=== PATIENT | female | born 1945 | race Caucasian/White ===

== ENCOUNTER 2018-10-01 14:05 | Observation (INO) | payer MEDICARE ==
[~2018-10-01] VITALS: Ht 152.4 cm; Wt 68.2 kg
[2018-10-01] MEDS ORDERED: LABETALOL HCL 5 MG/ML 20ML VIAL IV ONE (14:32)
[2018-10-01] MEDS ORDERED: POTASSIUM CHLO10 ME1 PO (14:44)
[2018-10-01] MEDS ORDERED: VITAMIN D31000 UNIT (14:44)
[2018-10-01] MEDS ORDERED: METOPROLOL TART25 MG PO (14:44)
[2018-10-01] MEDS ORDERED: METFORMIN HCL1000 MG (14:44)
[2018-10-01] MEDS ORDERED: FUROSEMIDE40 MG PO (14:44)
[2018-10-01] MEDS ORDERED: ASPIRIN81 MG (14:44)
[2018-10-01] MEDS ORDERED: LISINOPRIL10 MG PO (14:44)
[2018-10-01] MEDS ORDERED: VITAMIN B-121000 MCG PO (14:44)
[2018-10-01] MEDS ORDERED: CRESTOR10 MG (14:44)
[2018-10-01] MEDS ORDERED: LABETALOL HCL 20 ML ONE (14:55)
[2018-10-01] MEDS ORDERED: DIPHENHYDRAMINE HCL INJ 50 MG/ML VIAL IV PRN (15:15)
[2018-10-01] MEDS ORDERED: LABETALOL HCL 5 MG/ML 20ML VIAL IV PRN (15:15)
[2018-10-01] MEDS ORDERED: ONDANSETRON HCL INJ 2MG/ML 2ML 2 MG/ML VIAL IV PRN (15:15)
[2018-10-01] MEDS ORDERED: ACETAMINOPHEN 325 MG TAB PO PRN (15:15)
--- NOTE | 2018-10-01 15:20 | Diagnostic Imaging Report ---
Exam: Head CT without contrast History: Numbness in both arms Comparison studies: None Technique: Axial images were obtained from the skull base to the vertex. Coronal and sagittal images reconstructed from the axial data. Dose modulation, iterative reconstruction, and/or weight based adjustment of the mA/kV was utilized to reduce the radiation dose to as low as reasonably achievable. Radiation dose: Total DLP: 969 mGy*cm. Estimated effective dose: DLP x 0.015 Intravenous contrast: None Findings: Scalp: No abnormalities. Bones: No fractures, blastic or lytic lesions. Brain sulci: Mildly prominent. Ventricles: Normal in size and configuration. No hydrocephalus. Extra-axial spaces: No masses, no fluid collection. Parenchyma: No mass, acute hemorrhage or acute or chronic cortical insults. Scattered hypodensities throughout the supratentorial white matter are nonspecific but most compatible with chronic microvascular ischemic changes. Sellar/suprasellar region: No abnormalities. Craniocervical junction: Patent foramen magnum. No Chiari one malformation. Middle ear mastoid cavities: Clear. Included paranasal sinuses: Left maxillary sinus fluid level. Remaining included sinuses are clear. Incidental findings: Lens replacements for previous cataract surgery. Atherosclerotic calcifications in the carotid siphons and intradural vertebral arteries. IMPRESSION: 1. No acute intracranial abnormalities. 2. Mild age-related generalized volume loss. 3. Mild chronic microvascular ischemic changes. 4. Left maxillary sinus fluid can be correlated for acute sinusitis. Signed by: Dr. Petey Villalta M.D. on 10/01/2018 3:17 PM
--- NOTE | 2018-10-01 15:21 | NUR ---
L arm BP 190/94 R arm BP 219/90
--- OUTSIDE RECORDS SUMMARY | 2018-10-01 15:38 | XMS REPORT ---
Author Author [facility] Address Unknown Phone Unavailable Care Team Providers Care Carcass Washer Name Role Phone Edvin NORTH Unavailable Unavailable Problems This patient has no known problems. Allergies, Adverse Reactions, Alerts This patient has no known allergies or adverse reactions. Medications This patient has no known medications. Results Test Description Test Time Test Comments Text Results Atomic Results Result Comments CT BRAIN WO-HOPD 2018-10-01 15:14:00 [place] [address] Patient Name: WILL TURNER MR #: [id number] : 1945 Age/Sex: 73/F Req #: [id number] Adm Physician: Ordered by: JHONATHAN NORTH MD Report #: [id number] Location: [facility] Room/Bed: Procedure: [id number] HOPD/CT BRAIN WO-HOPD Exam Date: 10/01/18 Exam Time: 1508 REPORT STATUS: Signed Exam: Head CT without contrast History: Numbness in both arms Comparison studies: None Technique: Axial images were obtained from the skull base to the vertex. Coronal and sagittal images reconstructed from the axial data. Dose modulation, iterative reconstruction, and/or weight based adjustment of the mA/kV was utilized to reduce the radiation dose to as low as reasonably achievable. Radiation dose: Total DLP: 969 mGy*cm. Estimated effective dose: DLP x 0.015 Intravenous contrast: None Findings: Scalp: No abnormalities. Bones: No fractures, blastic or lytic lesions. Brain sulci: Mildly prominent. Ventricles: Normal in size and configuration. No hydrocephalus. Extra-axial spaces: No masses, no fluid collection. Parenchyma: No mass, acute hemorrhage or acute or chronic cortical insults. Scattered hypodensities throughout the supratentorial white matter are nonspecific but most compatible with chronic microvascular ischemic changes. Sellar/suprasellar region: No abnormalities. Craniocervical junction: Patent foramen magnum. No Chiari one malformation. Middle ear mastoid cavities: Clear. Included paranasal sinuses: Left maxillary sinus fluid level. Remaining included sinuses are clear. Incidental findings: Lens replacements for previous cataract surgery. Atherosclerotic calcifications in the carotid siphons and intradural vertebral arteries. IMPRESSION: 1. No acute intracranial abnormalities. 2. Mild age- related generalized volume loss. 3. Mild chronic microvascular ischemic changes. 4. Left maxillary sinus fluid can be correlated for acute sinusitis. Signed by: Dr. Lionel George M.D. on 10/01/2018 3:17 PM Dictated By: LIONEL GEORGE MD [id number] Transcribed By: ALEX on 10/01/18 [id number] COPY TO: JHONATHAN NORTH MD
--- NOTE | 2018-10-01 15:54 | NUR ---
Report to ANNIE Leon
--- NOTE | 2018-10-01 15:55 | NUR ---
[facility] called to transport pt to [facility] room 179
[2018-10-01] MEDS ORDERED: DEXTROSE 50% SYRINGE 50 ML IV PRN (16:00)
[2018-10-01] MEDS: INSULIN REGULAR, HUMAN 100 UNIT/1 ML 3ML VIAL SQ SCH ×2 (16:09→21:00)
[2018-10-01] MEDS ORDERED: METOPROLOL TARTRATE 50 MG TAB ONE (16:14)
[2018-10-01] MEDS ORDERED: FAMOTIDINE 20 MG/2 ML VIAL IV ONE (16:15)
[2018-10-01] MEDS ORDERED: LISINOPRIL 10 MG TAB PO SCH (16:30)
[2018-10-01] MEDS ORDERED: METOPROLOL TARTRATE 50 MG TAB PO SCH (17:00)
[2018-10-01] MEDS ORDERED: FAMOTIDINE 20 MG/2 ML VIAL IV SCH (17:00)
--- NOTE | 2018-10-01 17:20 | NUR ---
Recvd patient from [facility] by EMS. AAOx3, denies any pain or SOB , PATIENT AMBULATING IN ROOM, KEEP MONITORING, CALL LIGHT IN REACH
[2018-10-01 17:50] VITALS: BP 157/77
[2018-10-01 18:24] LABS: CREATINE KINASE MB 1.2 ng/mL (0-5.0)
[2018-10-01] MEDS ORDERED: HYDRALAZINE HCL 20 MG/ML VIAL IV PRN (19:00)
[2018-10-01 20:00] VITALS: BP 121/80
[2018-10-01] MEDS: HEPARIN SOD (PORCINE) 5,000 UNIT/ML VIAL SC SCH (21:00)
[2018-10-01] MEDS ORDERED: ZOLPIDEM TARTRATE 5 MG TAB PO PRN (21:00)
[2018-10-01] MEDS ORDERED: SIMVASTATIN 20 MG TAB PO SCH (21:00)
[2018-10-01] MEDS ORDERED: SIMVASTATIN 40 MG TAB PO SCH (21:00)
--- NOTE | 2018-10-01 22:23 | Consultation ---
DATE OF CONSULTATION: 10/01/2018 Neurology Consult Note HISTORY OF PRESENT ILLNESS: Ms. Villalobos is a 73-year-old right-hand dominant woman with past medical history significant for hypertension, hyperlipidemia, and diabetes mellitus type 2, admitted to [facility] on October 01, 2018, with symptoms suspicious for a stroke. Ms. Villalobos describes her symptoms as follows. The patient has experienced a sudden onset of numbness, beginning near the elbow, then radiating distally to the hand, then proximally to the side of the neck and lower face (V3 distribution). In each instance, the symptoms have lasted for approximately 30 minutes. The symptoms occurred once on Wednesday, September 26, 2018. The symptoms occurred once per day on Sunday, September 30, 2018, and September, In addition to the above described symptoms, Ms. Villalobos endorses dysarthria when experiencing the numbness over the right arm. The patient does not report a new or worsening visual field cut or other disturbance, weakness, poor balance, impairment of gait, dizziness, or confusion. The patient does not report a headache, chest pain, nausea, or vomiting. Ms. Villalobos presented to a [facility] on the afternoon of October 01, 2018, for further evaluation of her symptoms at the urging of multiple family members. Upon arrival in the emergency center, the patient's blood pressure was 245/120 mmHg with a pulse of 76 beats per minute. Ms. Villalobos's neurological examination was documented as being nonfocal. A CT of the brain without contrast was performed at the [facility]. There is no evidence of recent large territorial ischemia or hemorrhage. Ms. Villalobos was then transferred from the [facility] to [facility], where she was admitted under observation status for further evaluation of her symptoms. Ms. Villalobos endorses compliance with all medications prescribed. However, she does report forgetting to take her antihypertensive medications on the evening prior to admission. REVIEW OF SYSTEMS: Dysarthria, numbness alternately of the left and right arms. PAST MEDICAL HISTORY: Hypertension, hyperlipidemia, diabetes mellitus type 2, and anemia. PAST SURGICAL HISTORY: Bovine aortic valve replacement, bilateral carpal tunnel release, multiple trigger finger releases, right breast lumpectomy-DCIS. The patient receives 7 weeks of radiation as well. PAST HOSPITALIZATIONS: Surgeries/procedures as listed. FAMILY MEDICAL HISTORY: The patient's paternal and maternal grandparents are . Their medical records are unknown. The patient's father is . He had coronary artery disease as well as a myocardial infarction. The patient's mother is from uterine cancer. Multiple Ms. Villalobos's brothers had coronary artery disease with myocardial infarctions. A sister from nonalcoholic cirrhosis. SOCIAL HISTORY: The patient is . 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 Ms. Villalobos does report a prior history of tobacco use, but quit smoking cigarettes approximately 30+ years ago. The patient does endorse occasional alcohol use. She does not report current or prior recreational drug use. HOME MEDICATIONS: Aspirin 81 mg by mouth daily, vitamin D3 of 1000 units, vitamin B12 of 1000 mcg by mouth daily, furosemide 20 mg by mouth daily, lisinopril 10 mg by mouth twice daily, metformin 1000 mg, metoprolol 25 mg by mouth daily, potassium chloride 10 mEq by mouth daily, and rosuvastatin 2.5 mg by mouth at bedtime daily. HOSPITAL MEDICATIONS: Tylenol, aspirin, Benadryl, Pepcid, heparin, hydralazine, Humulin, labetalol, lisinopril, metoprolol, Zofran, simvastatin, and Ambien. ALLERGIES: ALTACE, ZETIA, ADVERSE EFFECTS OF MULTIPLE STATINS. ORANGE. THE PATIENT DOES NOT REPORT A LATEX ALLERGY. HOWEVER, SHE DOES HAVE AN ADVERSE REACTION TO NON-PAPER TAPE. NO KNOWN ALLERGIES TO IODINE OR OTHER CONTRAST MATERIALS. PHYSICAL EXAMINATION: VITAL SIGNS: Height 60 inches, weight 148 pounds, BMI 28.9 kg/m2, blood pressure 157/77 mmHg, pulse is 72 beats per minute, respiratory rate 20 breaths per minute, and oxygen saturation 96% on room air. GENERAL: The patient is awake and alert, does not appear distressed. Overweight. HEENT: Normocephalic and atraumatic. Pupils are surgical. Moist mucous membranes. NECK: Supple. No appreciable thyromegaly. No appreciable carotid bruits. CARDIOVASCULAR: S1, S2, regular rate and rhythm. No murmurs, rubs, or gallops. RESPIRATORY: Clear to auscultation bilaterally. No wheezes, rhonchi, or rales. EXTREMITIES: The skin is warm and dry. No clubbing, cyanosis, or edema. The posterior tibial and dorsalis pedis pulses are 2+ and symmetric. SKIN: No rashes or lesions. NEUROLOGIC: Memory/Attention: The patient is awake and alert, oriented to person, place, time, and situation. Cranial Nerves: Cranial nerve I - not tested. Cranial nerves II, III, IV, and - pupils are surgical. Extraocular movements intact. No nystagmus. Cranial nerve V - sensation to light touch and pinprick is intact in the bilateral V1 through V3 distributions. Strength in the temporalis and masseter muscles are within normal limits. Cranial nerve VII - the face is asymmetric on the right as are all facial movements. Very mild right central facial weakness is appreciated. Cranial nerve VIII - hearing is intact to finger rub bilaterally. Cranial nerves IX, X - the soft palate elevates equally and symmetrically. Cranial nerve XI - normal strength of the bilateral sternocleidomastoid and trapezius muscles. Cranial nerve XII - the tongue protrudes midline and moves symmetrically from [id number]-[id number]. Strength: Bulk is normal. Strength is 5/5 in the bilateral deltoids, biceps, triceps, wrist flexors and extensors, finger flexors and extensors, intrinsic hand muscles, hip flexors, knee flexors and extensors, ankle dorsiflexion and plantar flexion, and intrinsic foot muscles except as follows: The flexors in the right leg are 4/5. Tone is normal. DTRs: Deep tendon reflexes are 2+ at the left triceps, biceps, brachioradialis, and patella. Deep tendon reflexes are 3+ at the right triceps, biceps, brachioradialis, and patellas. Deep tendon reflexes are absent and symmetric at the Achilles. Plantar responses are flexor bilaterally. Sensation: Sensation is diminished to light touch and pinprick in a stocking distribution, but symmetric from [id number]. Cerebellar: Jebzeu-daxm-[id number] and heel-everett movements are intact without dysmetria or other impairment. Gait: Deferred. Speech: Spontaneous speech is normal without appreciable dysarthria or aphasia. Repetition is intact. Involuntary Movements: None. Pronator Drift: Subtle in the right arm. LABORATORY DATA: Creatine kinase 61, CK-MB 1.20, and troponin I 0.008. DIAGNOSTIC STUDIES: Electrocardiogram on 10/01/2018: Normal sinus rhythm at [address] of the brain without contrast on 10/01/2018: On my review, there is no evidence of recent or remote large territorial ischemia, hemorrhage, mass, or mass effect. There is mild diffuse cerebral atrophy with compensatory dilatation of the ventricles, appropriate for the patient's age. Their findings compatible with [id number]-as-[id number] chronic small-vessel ischemic disease. ASSESSMENT AND PLAN: Ms. Villalobos is a 73-year-old right-hand dominant woman with multiple vascular risk factors, admitted to [facility] under observation status on October 01, 2018, with hypertensive emergency as well as transient numbness and dysarthria as described in the history of present illness. The patient's neurological examination is significant for a mild right hemiparesis and brisk deep tendon reflexes over the right hemibody. Ms. Villalobos's laboratory data and other diagnostic studies have been reviewed and are documented above. While the patient's admitting diagnosis is transient ischemic attack, based on her neurological examination, I strongly suspect the patient has experienced a recent stroke in the subcortical left middle cerebral artery distribution. RECOMMENDATIONS: Are as follows: 1. A lipid panel and hemoglobin A1c will be ordered with morning labs. 2. An MRI of the brain without contrast will be ordered. 3. An echocardiogram will be ordered. 4. A bilateral carotid artery ultrasound with Doppler will be ordered. 5. Continue aspirin 325 mg by mouth daily for the time being. If the patient has had a recent stroke, aspirin will be discontinued and replaced with Plavix 75 mg by mouth daily for stroke prophylaxis. 6. Due to the possible recent stroke, permissive hypertension should be allowed for 24 to 48 hours. The patient's home blood pressure medications will be held/discontinued. Hydralazine 10 mg intravenously every 4 hours as needed for systolic blood pressure greater than 200 mmHg or diastolic blood pressure greater than 110 mmHg will be prescribed. 7. The patient's goal total cholesterol is less than 200 with an LDL of less than 70. Follow up the results of the lipid panel. In the interim, continue treatment with simvastatin 10 mg by mouth at bedtime daily. 8. The patient's goal hemoglobin A1c is 7.0. Follow up the results of the hemoglobin A1c. Continue sliding scale insulin per protocol. Tight glycemic control is recommended, while the patient is hospitalized. 9. Consult Physical Therapy for mild right hemiparesis. Speech Therapy does not need to be consulted as there are no language or cognitive deficits present. 10. GI prophylaxis with Pepcid 20 mg by mouth twice daily with meals. DVT prophylaxis with heparin 5000 units subcutaneously every 12 hours. 11. Defer treatment of the remaining medical comorbidities to the primary and other services following the patient. Thank you for this consultation. I will continue to follow the patient, while she remains in the hospital. TIME SPENT: 50 minutes. Sharyn Castaneda MD CP/PATEL /[id number]
[2018-10-02] VITALS: BP 151/59
[2018-10-02 04:00] VITALS: BP 187/88
[2018-10-02 04:04] LABS: BASOPHILS % 0.5 % (0.0-1.0); EOSINOPHILS # (AUTO) 0.2 (0.0-0.4); EOSINOPHILS % 2.7 % (0.0-6.0); HEMOGLOBIN 9.5 g/dL (12.0-16.0); LYMPHOCYTES # (AUTO) 2.3 (1.0-3.2); LYMPHOCYTES % 39.1 % (18.0-39.1); MEAN CORPUSCULAR HEMOGLOBIN 29.3 pg (28-32); MEAN CORPUSCULAR HGB CONC 32.8 g/dL (31-35); MEAN CORPUSCULAR VOLUME 89.5 fL (81-99); MONOCYTES # (AUTO) 0.5 (0.2-0.8); MONOCYTES % 8.7 % (4.4-11.3); NEUTROPHILS # (AUTO) 2.9 (2.1-6.9); NEUTROPHILS % 48.7 % (38.7-80.0); PLATELET COUNT 186 x10e3/uL (140-360); RED BLOOD COUNT 3.24 x10e6/uL (3.6-5.1); RED CELL DISTRIBUTION WIDTH 13.2 % (11.7-14.4)
[2018-10-02 04:26] LABS: ANION GAP 14.6 mmol/L (8-16); CALCIUM 9.7 mg/dL (8.4-10.2); CHOL/HDL RATIO 3.9 (3.0-3.6); CREATININE, SERUM 1.42 mg/dL (0.57-1.11); POTASSIUM 3.6 mmol/L (3.5-5.1)
[2018-10-02 04:41] LABS: FREE T4 (FREE THYROXINE) 1.07 ng/dL (0.9-1.8); THYROID STIMULATING HORMONE 2.359 uIU/mL (0.350-4.940)
[2018-10-02 06:23] LABS: CREATINE KINASE MB 1.2 ng/mL (0-5.0)
--- NOTE | 2018-10-02 06:57 | NUR ---
REPORT GIVEN TO DAY NURSE. PATIENT IS RESTING COMFORTABLY IN BED. BED IS IN LOWEST POSITION AND CALL LIGHT IS WITHIN REACH.
--- NOTE | 2018-10-02 07:00 | NUR ---
received am report from rn. pt is awake sitting in bedside chair, no s/s of distress.
[2018-10-02 08:25] VITALS: BP 158/73
[2018-10-02] MEDS: FAMOTIDINE 20 MG TAB PO SCH ×2 (08:31→16:45)
[2018-10-02] MEDS ORDERED: FERROUS SULFAT325 MG PO (08:36)
[2018-10-02] MEDS: INSULIN REGULAR, HUMAN 100 UNIT/1 ML 3ML VIAL SQ SCH ×3 (08:50→16:30)
[2018-10-02] MEDS ORDERED: METOPROLOL TARTRATE 25 MG TAB PO SCH ×2 (09:00→18:00)
[2018-10-02] MEDS ORDERED: ASPIRIN 325 MG TAB EC PO SCH ×2 (09:00→17:00)
[2018-10-02 09:30] VITALS: BP 158/73
--- NOTE | 2018-10-02 09:40 | NUR ---
per OFFICE EXECUTIVE patient is okay to come off telemetry temporarily for MRI, patient will be placed back on telemetry upon return to floor
[2018-10-02] MEDS: HEPARIN SOD (PORCINE) 5,000 UNIT/ML VIAL SC SCH (10:20)
--- NOTE | 2018-10-02 10:21 | NUR ---
patient alert and oriented, leaving unit via wheelchair to MRI.
[2018-10-02] MEDS ORDERED: ONDANSETRON HCL 4 MG ORAL DISINTEGRATING TAB PO PRN (10:45)
--- NOTE | 2018-10-02 10:54 | NUR ---
patient returned to unit via wheelchair. alert and oriented, call kim within reach and bed in lowest position
[2018-10-02 12:22] VITALS: BP 187/82
--- NOTE | 2018-10-02 12:33 | Diagnostic Imaging Report ---
History: Hypertensive emergency, TIA Comparison studies: Head CT 10/01/2018. Technique: Sagittal and axial T2 FS, axial DWI, axial T2*GRE, axial T1 FLAIR and axial coronal T2 FLAIR. Intravenous contrast: None Findings: Scalp: Normal in signal. No masses. Bone marrow: Normal in signal intensity. Brain sulci: Mild prominent, slightly greater in the parietal lobes. Ventricles: Normal in size. No hydrocephalus. Extra axial spaces: No mass, no fluid collection. Parenchyma: No mass, hemorrhage or acute ischemia. A few scattered T2 FLAIR hyperintense foci in the supratentorial white matter are nonspecific but most compatible with chronic microvascular ischemic changes. Suprasellar region: No abnormalities. Craniocervical junction: Patent foramen magnum. No Chiari malformation. Vessels: Normal flow-voids in the arteries and sinuses. Incidental findings: Lens replacement for previous cataract surgery. Small left maxillary sinus fluid level. IMPRESSION: 1. No acute ischemia or other acute intracranial abnormalities. 2. Mild generalized cerebral volume loss with a biparietal predominance. 3. Mild chronic microvascular ischemic changes. 4. Left maxillary sinus fluid level can be correlated for acute sinusitis. Signed by: Dr. Petey Villalta M.D. on 10/02/2018 12:30 PM
[2018-10-02 14:45] LABS: CREATINE KINASE MB 2.1 ng/mL (0-5.0)
[2018-10-02 16:06] VITALS: BP 196/86
[2018-10-02] MEDS ORDERED: LISINOPRIL 10 MG TAB PO SCH ×2 (17:00→18:00)
--- NOTE | 2018-10-02 18:45 | NUR ---
rounded with overnight stocker nurse, patient sitting in bedside chair and in no distress. call kim within reach and bed in lowest position, friends/family at bedside.
[2018-10-02] MEDS ORDERED: ASPIRIN ENTERI325 MG PO (19:06)
[2018-10-02] MEDS ORDERED: CRESTOR 10MG PO SCH (21:00)
--- NOTE | 2018-10-03 01:55 | Discharge Summary ---
ADMISSION DIAGNOSES: Hypertensive emergency, cerebrovascular accident versus transient ischemic attack, possible; hypertension; hyperlipidemia; type 2 diabetes; anemia. DISCHARGE DIAGNOSES: Hypertensive emergency, cerebrovascular accident versus transient ischemic attack, possible; hypertension; hyperlipidemia; type 2 diabetes; anemia; rule out transient ischemic attack, rule out cerebrovascular accident. HISTORY: The patient has a history of hypertension, hyperlipidemia, type 2 diabetes, anemia. SURGICAL HISTORY: Bovine aortic valve replacement, bilateral carpal tunnel release, right breast lumpectomy, multiple trigger finger releases. FAMILY HISTORY: The patient's father and brother had heart attack. The patient's mother had cancer. SOCIAL HISTORY: The patient admits to occasional alcohol use and admits to quitting tobacco use about 30 years ago. HOSPITAL COURSE: A 73-year-old female, from out of [facility], presents with facial numbness that lasted about 30 minutes and right arm heaviness that began while making her trip to [place]. She reports she was in the airport all day 2 days before admission. She got scared when the symptoms happen 2 days in a row. The symptoms are intermittent and resolved at the time of my assessment. She denies weakness, impaired speech, falls, or visual impairment. On admission, the patient had a CT of the brain, which was negative. The patient's blood pressure on admission was 245/120. She was started on labetalol in the ER. She was also started on aspirin 325 and heparin subcu. The patient then had an MRI of the brain that showed no acute ischemia, chronic microvascular ischemic changes. The patient was allowed permissive hypertension for 24 hours and then resumed on her home medicines. Once her home medicines were resumed, her blood pressure dropped to 140s. She admittedly does not take her cholesterol medicine every day and her triglycerides were found to be 303. She was instructed to take medicines as prescribed and says that she will continue to do so. Now that her blood pressure is better under control, Neurology has discharged her. The patient is again asymptomatic and will be discharged home. The patient understands discharge instructions and agrees to plan. She will take her medications as prescribed and follow up with primary care in 1 to 2 weeks. The patient understands discharge instructions and agrees. Dictated by Shruthi Dwyer NP Gary Turner MD ZENOBIA/MODL /[id number]
== END 2018-10-02 19:28 | disposition home or self-care (01) ==
LOC: FSED 14:05 → ERHOLD 15:24 → IMCU 16:56 → MED/SURG 10-02 13:28
PROVIDERS: ADMIT Internal Medicine; ATTEND Internal Medicine
DX: I16.1 Hypertensive emergency (principal); R20.2 Paresthesia of skin; I10 Essential (primary) hypertension; E11.9 Type 2 diabetes mellitus without complications; I25.10 Atherosclerotic heart disease of native coronary artery without angina pectoris; E78.5 Hyperlipidemia, unspecified; Z95.2 Presence of prosthetic heart valve; Z87.891 Personal history of nicotine dependence; Z88.8 Allergy status to other drugs, medicaments and biological substances; Z91.018 Allergy to other foods; D64.9 Anemia, unspecified; R47.1 Dysarthria and anarthria; G81.91 Hemiplegia, unspecified affecting right dominant side; Z82.49 Family history of ischemic heart disease and other diseases of the circulatory system; Z72.89 Other problems related to lifestyle; Z80.9 Family history of malignant neoplasm, unspecified; Z79.82 Long term (current) use of aspirin; Z79.84 Long term (current) use of oral hypoglycemic drugs
CPT/HCPCS: 36415; 70450; 70551; 80048; 80053; 80061; 82550; 82553; 82948; 83036; 83735; 83880; 84439; 84443; 84484; 85025; 85730; 93005; 93306; 93880; 96374; 96375; 99284; G0378; J0360; J1200; J1644; J2405